=== PATIENT | female | born 1985 | race Native Hawaiian/Other Pacific Islander ===

== ENCOUNTER 2017-02-07 10:37 | Outpatient (CLI) | payer OTHER ==
[2017-02-07] MEDS ORDERED: DILAUDID8 MG PO (11:14)
[2017-02-07] MEDS ORDERED: OXYCODONE HCL E60 MG PO (11:14)
[2017-02-07] MEDS ORDERED: DIAZEPAM10 MG PO (11:15)
[2017-02-07] MEDS ORDERED: METOPROLOL25 M1 PO (11:15)
== END 2017-02-07 10:41 | disposition short-term general hospital (02) ==
LOC: AMB 10:37
DX: S01.01XA Laceration without foreign body of scalp, initial encounter (principal); R51 Headache; W22.8XXA Striking against or struck by other objects, initial encounter; Y92.098 Other place in other non-institutional residence as the place of occurrence of the external cause
CPT/HCPCS: A0425; A0427

== ENCOUNTER 2017-02-07 10:41 | Emergency (ER) | payer OTHER ==
[~2017-02-07] VITALS: Ht 175.3 cm; Wt 59.0 kg
[2017-02-07] MEDS ORDERED: DILAUDID8 MG PO (11:14)
[2017-02-07] MEDS ORDERED: OXYCODONE HCL E60 MG PO (11:14)
[2017-02-07] MEDS ORDERED: METOPROLOL25 M1 PO (11:15)
[2017-02-07] MEDS ORDERED: DIAZEPAM10 MG PO (11:15)
[2017-02-07 12:53] VITALS: BP 118/78; TEMP 98
== END 2017-02-07 12:53 ==
LOC: ED 10:41
PROC: 0HQ0XZZ Repair Scalp Skin, External Approach (ICD-10-PCS; principal; 2017-02-07)
DX: S00.83XA Contusion of other part of head, initial encounter (principal); S01.01XA Laceration without foreign body of scalp, initial encounter; W22.8XXA Striking against or struck by other objects, initial encounter; Y92.098 Other place in other non-institutional residence as the place of occurrence of the external cause
CPT/HCPCS: 99283

== ENCOUNTER 2022-06-14 15:21 | Emergency (ER) | payer OTHER ==
[~2022-06-14] VITALS: Ht 175.3 cm; Wt 64.9 kg
[~2022-06-14 15:21] MED LIST: DIAZEPAM10 MG PO; DILAUDID8 MG PO; METOPROLOL25 M1 PO; OXYCODONE HCL E60 MG PO
[2022-06-14 15:30] VITALS: BP 112/57; TEMP 98
== END 2022-06-14 16:56 | disposition home or self-care (01) ==
LOC: ED 15:21
PROC: 0KQD0ZZ Repair Left Hand Muscle, Open Approach (ICD-10-PCS; principal; 2022-06-14)
DX: S61.412A Laceration without foreign body of left hand, initial encounter (principal); S90.812A Abrasion, left foot, initial encounter; F19.10 Other psychoactive substance abuse, uncomplicated; X99.8XXA Assault by other sharp object, initial encounter; Y92.89 Other specified places as the place of occurrence of the external cause
CPT/HCPCS: 99283